=== PATIENT | male | born 1995 | race Caucasian/White ===

== ENCOUNTER 2018-09-21 12:33 | Day surgery (SDC) | payer OTHER ==
[~2018-09-21] VITALS: Ht 177.8 cm; Wt 83.4 kg
[~2018-09-21 12:33] MED LIST: BUPIVACAINE/EPI 0.5% 1:200K ONE
[2018-09-21] MEDS ORDERED: LACTATED RINGERS 1,000 ML IV SCH (12:52)
[2018-09-21] MEDS ORDERED: NONE PER PT (12:52)
[2018-09-21 13:26] VITALS: BP 118/71
[2018-09-21] MEDS ORDERED: MIDAZOLAM 1 MG/ML, 2ML IV PRN (14:00)
[2018-09-21] MEDS ORDERED: hydrALAzine 20 MG/ML, 1ML IV PRN (14:00)
[2018-09-21] MEDS ORDERED: OXYcodone 5 MG/5 ML ORAL.SOL UDC PO PRN (14:00)
[2018-09-21] MEDS ORDERED: EPHEDRINE 50 MG/ML, 1ML IM PRN (14:00)
[2018-09-21] MEDS ORDERED: ALBUTEROL/IPRATROPIUM 2.5MG/0.5MG, 3 ML NPPB PRN (14:00)
[2018-09-21] MEDS ORDERED: MORPHINE SULFATE 4 MG/ML, 1ML IVPush PRN (14:00)
[2018-09-21] MEDS ORDERED: MEPERIDINE/PF 25MG/0.5ML IVPush PRN (14:00)
[2018-09-21] MEDS ORDERED: EPHEDRINE 50 MG/ML, 1ML IVPush PRN (14:00)
[2018-09-21] MEDS ORDERED: DEXAMETHASONE 4 MG/ML, 1ML IV PRN (14:00)
[2018-09-21] MEDS ORDERED: METOCLOPRAMIDE 5 MG/ML, 2ML IV PRN (14:00)
[2018-09-21] MEDS ORDERED: KETOROLAC 30 MG/1 ML IV PRN (14:00)
[2018-09-21] MEDS ORDERED: HYDROcodone/APAP 7.5-325MG/15ML UDC PO PRN (14:00)
[2018-09-21] MEDS ORDERED: LABETALOL 5MG/ML, 20ML IV PRN (14:00)
[2018-09-21] MEDS ORDERED: HYDROmorphone 2 MG/ML, 1ML IVPush PRN (14:00)
[2018-09-21] MEDS ORDERED: ONDANSETRON 2MG/ML, 2ML IV PRN (14:00)
[2018-09-21] MEDS ORDERED: ROCURONIUM 10 MG/ML,10ML ONE (14:07)
[2018-09-21] MEDS ORDERED: FENTANYL PF 100 MCG/2ML ONE ×2 (14:07→16:21)
[2018-09-21] MEDS ORDERED: MIDAZOLAM 1 MG/ML, 2ML ONE ×2 (14:07→15:56)
[2018-09-21] MEDS ORDERED: CEFAZOLIN 1,000 MG ONE (14:07)
[2018-09-21] MEDS ORDERED: DEXAMETHASONE 4 MG/ML, 1ML ONE (14:07)
[2018-09-21] MEDS ORDERED: FENTANYL PF 250 MCG/5ML ONE (14:07)
[2018-09-21] MEDS ORDERED: LIDOCAINE-MPF 2% ,5ML ONE (14:07)
[2018-09-21] MEDS ORDERED: GLYCOPYRROLATE 0.2MG/1ML, 5ML ONE (14:07)
[2018-09-21] MEDS ORDERED: PROPOFOL 10 MG/ML, 20ML ONE (14:07)
[2018-09-21] MEDS ORDERED: OXYcodone 5 MG/5 ML ORAL.SOL UDC ONE (16:21)
[2018-09-21] MEDS: FENTANYL PF 100 MCG/2ML IV PRN ×3 (16:25→16:40)
[2018-09-21] MEDS ORDERED: ACETAMINOPHEN 650 MG/20.3 ML UDC ONE (16:47)
[2018-09-21] MEDS ORDERED: ACETAMINOPHEN 325 MG TABLET PO PRN (17:00)
== END 2018-09-21 18:50 | disposition home or self-care (01) ==
LOC: OUT 12:33
PROVIDERS: ATTEND Surgery
DX: K40.90 Unilateral inguinal hernia, without obstruction or gangrene, not specified as recurrent (principal); D17.6 Benign lipomatous neoplasm of spermatic cord; Z72.89 Other problems related to lifestyle
CPT/HCPCS: 49650; C1781; J0690; J1100; J1885; J2250; J2704; J3010; J7120; S2900

== ENCOUNTER 2019-12-25 13:56 | Emergency (ER) | payer OTHER ==
[~2019-12-25] VITALS: Ht 177.8 cm; Wt 79.0 kg
[~2019-12-25 13:56] MED LIST changes: -BUPIVACAINE/EPI 0.5% 1:200K ONE; +NONE PER PT
[2019-12-25 13:59] VITALS: BP 129/71
[2019-12-25] MEDS ORDERED: KETOROLAC 30 MG/1 ML IM ONE (14:30)
[2019-12-25] MEDS ORDERED: KETOROLAC 30 MG/1 ML ONE (14:46)
[2019-12-25 14:54] LABS: ALBUMIN 4.2 g/dL (3.4-5.0); ANION GAP 7 mmol/L (5-15); CALCIUM 8.8 mg/dL (8.5-10.1); CHLORIDE 103 mmol/L (98-107); CREATININE 0.73 mg/dL (0.7-1.3)
--- NOTE | 2019-12-25 14:58 | NUR ---
US AT BEDSIDE
--- NOTE | 2019-12-25 16:28 | NUR ---
REPORT FROM ALANNAH ALEGRIA. PT CARE RESPONSIBILITIES ASSUMED.
== END 2019-12-25 16:58 | disposition home or self-care (01) ==
LOC: ED 15:26
DX: S86.112A Strain of other muscle(s) and tendon(s) of posterior muscle group at lower leg level, left leg, initial encounter (principal); M79.662 Pain in left lower leg; R07.89 Other chest pain; R06.02 Shortness of breath; X58.XXXA Exposure to other specified factors, initial encounter; Y93.89 Activity, other specified; Y92.89 Other specified places as the place of occurrence of the external cause; Y99.8 Other external cause status
CPT/HCPCS: 36415; 71046; 80048; 82040; 85379; 93005; 93971; 96372; 99285; J1885